=== PATIENT | male | born 1955 | race Caucasian/White ===

== ENCOUNTER → 2017-04-07 | Outpatient (CLI) | payer BC ==
--- NOTE | 2017-04-07 12:03 | REP ---
Chest two views HISTORY: Cough Comparison: None The lungs are clear. The heart is normal in size. The pulmonary vasculature is normal in appearance. The bony structure is intact. IMPRESSION: No acute disease. Signed by Timothy Stone MD 04/07/2017 11:55 A
== END ==
LOC: M WUC 11:07
PROVIDERS: ATTEND Family Medicine
DX: R05 Cough (principal)

== ENCOUNTER → 2018-01-31 | Outpatient (REF) | payer BC ==
[2018-01-31 19:51] LABS: AMORPHOUS SEDIMENT LARGE (NEGATIVE); APPEARANCE, URINE TURBID (CLEAR); BACTERIA, URINE AUTO NEGATIVE (NEGATIVE); BILIRUBIN, URINE AUTO NEGATIVE (NEGATIVE); BLOOD, URINE BLOOD NEGATIVE (NEGATIVE); COLOR, URINE YELLOW (YELLOW); GLUCOSE, URINE (UA) AUTO NEGATIVE (NEGATIVE); KETONE, URINE AUTO NEGATIVE (NEGATIVE); LEUKOCYTE ESTERASE, URINE AUTO NEGATIVE (NEGATIVE); NITRITE, URINE AUTO NEGATIVE (NEGATIVE); PROTEIN, URINE AUTO NEGATIVE (NEGATIVE); RBC, URINE AUTO 2 /HPF (0-3); SPECIFIC GRAVITY URINE AUTO 1.025 (1.002-1.035); SQUAMOUS EPITHELIAL CELL UR AU 0 /HPF (0-6); UROBILINOGEN, URINE AUTO 0.2 mg/dL (0.0-2.0); WBC, URINE AUTO 2 /HPF (0-3)
== END ==
LOC: M SMT 17:10
DX: R97.20 Elevated prostate specific antigen [PSA] (principal)
CPT/HCPCS: 81001

== ENCOUNTER → 2018-02-13 | Outpatient (CLI) | payer BC | LOC: M SMT PRO 08:56 | DX: C61 Malignant neoplasm of prostate (principal); R97.20 Elevated prostate specific antigen [PSA] | CPT/HCPCS: G0416 ==

== ENCOUNTER → 2018-10-01 | Outpatient (CLI) | payer BC | LOC: M WUC 15:56 | PROVIDERS: ATTEND Urology | DX: C61 Malignant neoplasm of prostate (principal) ==

== ENCOUNTER → 2018-10-23 | Outpatient (CLI) | payer BC ==
--- NOTE | 2018-10-23 12:10 | REP ---
TRANSRECTAL PROSTATE ULTRASOUND WITH ULTRASOUND GUIDANCE FOR PROSTATE BIOPSY: Real-time sonographic evaluation of the prostate performed utilizing transrectal probe. The size of the gland is 4.2 x 3.4 x 4.7 cm for a total volume of 35.4 mL. Echotexture is heterogeneous and there are tiny calcifications in the prostate. Seminal vesicles appear symmetrical. Ultrasound guidance was provided for Dr. Buckner who performed ultrasound-guided biopsy of the prostate. Electronically Signed by Jac Murdock MD 10/23/2018 12:49 P
== END ==
LOC: M SMT PRO 09:20
PROVIDERS: ATTEND Urology
DX: C61 Malignant neoplasm of prostate (principal)
CPT/HCPCS: 76872; 76942; G0416

== ENCOUNTER → 2018-10-31 | Outpatient (CLI) | payer BC ==
[~2018-10-31] MED LIST: HYDR-3713 PO; HYDR12.55 PO; LISI40TA PO
[2018-10-31 19:00] LABS: HEMATOCRIT 44.6 % (42.0-52.0); HEMOGLOBIN 14.8 g/dl (13.5-17.5); MEAN CORPUSCULAR HEMOGLOBIN 32.1 pg (27.0-33.0); MEAN CORPUSCULAR HGB CONC 33.2 g/dl (32.0-36.5); MEAN CORPUSCULAR VOLUME 96.7 fl (80.0-96.0); PLATELET COUNT, AUTOMATED 260 10^3/uL (150-450); RED BLOOD COUNT 4.61 10^6/uL (4.30-6.10)
[2018-10-31 19:09] LABS: BLOOD UREA NITROGEN 14 MG/DL (7-18); CALCIUM LEVEL 9.3 MG/DL (8.8-10.2); CARBON DIOXIDE LEVEL 32 MEQ/L (21-32); CHLORIDE LEVEL 99 MEQ/L (98-107); CREATININE FOR GFR 0.91 MG/DL (0.70-1.30); GLOMERULAR FILTRATION RATE > 60.0 (>49); GLUCOSE, FASTING 98 MG/DL (70-100); POTASSIUM SERUM 4.4 MEQ/L (3.5-5.1); SODIUM LEVEL 137 MEQ/L (136-145)
[2018-10-31 19:13] LABS: INR 0.89; PROTHROMBIN TIME 12.1 SECONDS (12.1-14.4)
[2018-10-31 19:14] LABS: PARTIAL THROMBOPLASTIN TIME 29.7 SECONDS (25.4-37.6)
--- NOTE | 2018-11-01 03:58 | REP ---
Clinical: Preoperative assessment. Prostate cancer . Comparison: 04/07/2017 . Technique: PA and lateral. Findings: The mediastinum and cardiac silhouette are normal. A small 6 mm nodule within the right upper lung zone overlying the medial aspect of the right sixth rib cannot be excluded. The lung travis are otherwise clear and without acute consolidation, effusion, or pneumothorax. The skeletal structures are intact and normal. Impression: 1. Small 6 mm nodule in the medial right upper lung zone cannot be excluded. 2. No further acute cardiopulmonary process. Electronically Signed by Michael Ortega MD 11/01/2018 03:50 A
== END ==
LOC: M SMT 14:54
PROVIDERS: ATTEND Urology
DX: Z01.818 Encounter for other preprocedural examination (principal); R91.1 Solitary pulmonary nodule; C61 Malignant neoplasm of prostate; N39.0 Urinary tract infection, site not specified

== ENCOUNTER 2018-11-06 05:39 | Inpatient (IN) | payer BC ==
[2018-11-06] VITALS (7 sets, daily range): BP systolic 84–116; BP diastolic 52–66
[~2018-11-06] VITALS: Ht 175.3 cm; Wt 73.8 kg
[2018-11-06] MEDS ORDERED: LR 1,000 ML IV SCH ×2 (06:00→14:30)
[2018-11-06] MEDS ORDERED: HEPARIN SOD (PORCINE) 5000 UNITS/ML VIAL SQ ONE (06:00)
[2018-11-06] MEDS ORDERED: BUPIVACAINE HCL 0.25% 30 ML VIAL As Ordered ONE (07:14)
[2018-11-06] MEDS ORDERED: LIDOCAINE 1% SDV INJ 30 ML VIAL As Ordered ONE (07:14)
[2018-11-06] MEDS ORDERED: ACETAMINOPHEN TAB 650MG DOSE (2X325MG) PO PRN (07:30)
[2018-11-06] MEDS ORDERED: PERCOCET 5MG/325MG TAB PO PRN ×2 (07:30→14:30)
[2018-11-06] MEDS ORDERED: ONDANSETRON 4MG/2ML VIAL (J2405) IV PRN ×2 (07:30→14:30)
[2018-11-06] MEDS: NS 1,000 ML IV SCH ×3 (07:30→23:30)
[2018-11-06] MEDS ORDERED: MORPHINE 4 MG/ML 1ML VIAL/SYRINGE (J2270) IV PRN (07:30)
[2018-11-06] MEDS ORDERED: HEPARIN SOD (PORCINE) 5000 UNITS/ML VIAL As Ordered ONE (07:38)
[2018-11-06] MEDS ORDERED: ePHEDrine SULFATE 25 MG/5 ML(5MG/ML) SYRINGE As Ordered ONE ×2 (08:19→12:27)
[2018-11-06] MEDS ORDERED: GLYCOPYRROLATE INJ 0.2 MG/ML 2 ML VIAL As Ordered ONE (08:19)
[2018-11-06] MEDS ORDERED: NEOSTIGMINE 10 MG/10 ML VIAL (J2710) As Ordered ONE (08:19)
[2018-11-06] MEDS ORDERED: ONDANSETRON 4MG/2ML VIAL (J2405) As Ordered ONE (08:19)
[2018-11-06] MEDS ORDERED: ROCURONIUM BROMIDE 50 MG/5 ML VIAL As Ordered ONE ×3 (08:19→11:11)
[2018-11-06] MEDS ORDERED: fentaNYL 250 MCG/5 ML INJECTION (J3010) As Ordered ONE (08:19)
[2018-11-06] MEDS ORDERED: dexameTHASONE 4 MG/ML 1ML VIAL (J1100) As Ordered ONE (08:19)
[2018-11-06] MEDS ORDERED: PROPOFOL 200 MG/20 ML VIAL As Ordered ONE ×2 (08:19→13:28)
[2018-11-06] MEDS ORDERED: MIDAZOLAM INJ 2 MG/2 ML VIAL (J2250) As Ordered ONE (08:19)
[2018-11-06] MEDS ORDERED: HYDROmorphone HCL 2 MG/ML 1ML VIAL (J1170) As Ordered ONE (08:19)
[2018-11-06] MEDS ORDERED: LIDOCAINE 2% INJ 100 MG/5 ML SDV (FOR ANES.) As Ordered ONE (08:19)
--- NOTE | 2018-11-06 14:26 | ROOPDOC ---
[facility] Report Of Operation Report of Operation DATE OF PROCEDURE: 11/06/18 PREPROCEDURE DIAGNOSIS: Prostate cancer. POSTPROCEDURE DIAGNOSIS: Prostate cancer. PROCEDURE: Robotic-assisted laparoscopic radical prostatectomy with bilateral pelvic lymph node dissection. SURGEON: Clint Van MD FUSE COILER: Zully Pack NP ANESTHESIA: General. OPERATIVE INDICATIONS: This is a 63 year old male with intermediate risk clinical T1c [place] 3+4 prostate cancer. After a discussion of the options for treatment, he elected to undergo the above procedure. DESCRIPTION OF PROCEDURE: The patient was brought to the operating room and general anesthesia was induced. Prophylactic antibiotics were infused. He was then placed in the dorsal lithotomy position and prepped and draped in the usual sterile fashion. At this point, a Casarez catheter was inserted into the bladder and the balloon was filled with 10 mL of sterile water. We then made a midline incision just above the umbilicus for a 12 mm port. A Veress needle was utilized to achieve pneumoperitoneum. Next, a 12 mm port was inserted into the incision and subsequently a camera was inserted. There were no injuries from the Veress needle or initial trocar placement. At this point, we placed the remaining ports, including a 12 mm entry level marketing assistant port and then three robotic ports in the usual W configuration. Once all the ports were placed, the robot was docked. Lysis of adhesions between the sigmoid colon and abdominal wall was then performed. The bladder was then released from the anterior abdominal wall using electrocautery. Once the bladder was dropped, the fat overlying the prostate was cleared using electrocautery. The superficial dorsal vein was controlled with electrocautery. The endopelvic fascia was opened on both sides and the dorsal venous complex was cleared. Next, a #0 Vicryl [id number] stitch was placed around the dorsal venous complex. Once that was done, the bladder was opened and dissected away from the prostate. Of note, the patient had a large median lobe. As a result the patient had a larger than usual bladder neck once the prostate was dissected away from the bladder. Because of the excess amount of posterior bladder neck, this was trimmed back and the tissue removed was sent as posterior bladder neck margins. At this point, the prostate was lifted up. The vasa deferentia were identified in the midline. They were ligated with Weck clips and then transected. The seminal vesicles were also dissected off bilaterally. The rectum was safely mobilized away from the prostate. Based on preoperative discussion a right sided only nerve-sparing procedure was done. Therefore prior to taking the pedicles, the right neurovascular bundles was dissected off the prostate using cold scissors. At this point bilateral prostatic pedicles were taken using a combination of Weck clips and cold scissors. The pedicles were carried towards the apex. After taking care of the pedicles and mobilizing the rectum off the prostate below, the prostate was only connected by the urethra. At this point, the dorsal venous complex was transected with electrocautery. The urethra was then opened and the catheter was withdrawn and the posterior urethra was transected, thus freeing the prostate. At this point, we checked for hemostasis and it did appear very good. Next, we performed bilateral pelvic lymph node dissection. This was done in a standard fashion. The limits of dissection were the iliac vein proximally, the obturator nerve distally, the pelvic sidewall laterally, and the bladder medially. All lymphatic tissue within these limits was removed. I performed the same procedure on both the right and left sides. Hemostasis was then obtained with a combination of bipolar electrocautery and Weck clips. The lymphatic packets were then placed in separate Endo Catch bags for future retrieval. Once hemostasis was confirmed, I then moved on to perform the vesicourethral anastomosis. This was performed in running fashion using a Quill stitch. Once this was done, the final #20-Yi Casarez catheter was placed. The balloon was filled with 15 mL of sterile water. Upon completion of the vesicourethral anastomosis, it was tested by filling the bladder with sterile water. The anastomosis appeared to be watertight. At this point, the prostate and seminal vesicles were placed in an Endo Catch bag for future retrieval. The robot was then undocked. A Wesley fascial closure device was utilized to place a #0 Vicryl suture between the fascia of the 12 mm entry level marketing assistant port. At this point, a Tucker- Tran drain was brought in through the left robotic port skin site and the drain was positioned anterior to the bladder. The drain was secured to the skin with #2-0 Ethilon suture. Next, all the remaining ports were removed and there did not appear to be any bleeding from any of the port sites. The prostate, as well as the lymphatic packets were then extracted from the 12 mm camera port site after the skin was extended. The fascia in this incision was then closed with a running #0 Vicryl stitch. The previously placed #0 Vicryl free ties through the entry level marketing assistant port were then tied down and all incisions were irrigated. Last, all of the incisions were closed with running subcuticular #4-0 Monocryl sutures. Local anesthesia was applied. Dermabond was then applied to the incisions. This marked the conclusion of the procedure. The patient was then taken out of the dorsal lithotomy position, awakened from anesthesia and transported to the recovery room in stable condition. ESTIMATED BLOOD LOSS: 425 mL. COMPLICATIONS: None. SPECIMENS: Prostate and seminal vesicles, right pelvic lymph nodes, left pelvic lymph nodes, posterior bladder neck margins. PLAN: The patient will be admitted to the hospital postoperatively, and he will likely be discharged home within the next 1-2 days. CLINT VAN MD Nov 06, 2018 14:26
[2018-11-06] MEDS ORDERED: METOCLOPRAMIDE INJ 10MG/2ML VIAL (J2765) IV PRN (14:30)
[2018-11-06] MEDS ORDERED: MEPERIDINE INJ 25 MG/ML VIAL (J2175) IV PRN (14:30)
[2018-11-06] MEDS ORDERED: fentaNYL 100 MCG/2 ML INJECTION (J3010) As Ordered ONE (14:33)
[2018-11-06] MEDS: fentaNYL 100 MCG/2 ML INJECTION (J3010) IV PRN ×4 (14:38→15:04)
[2018-11-06 14:56] LABS: BLOOD UREA NITROGEN 10 MG/DL (7-18); CALCIUM LEVEL 7.5 MG/DL (8.8-10.2); CARBON DIOXIDE LEVEL 25 MEQ/L (21-32); CHLORIDE LEVEL 102 MEQ/L (98-107); CREATININE FOR GFR 0.94 MG/DL (0.70-1.30); GLOMERULAR FILTRATION RATE > 60.0 (>49); GLUCOSE, FASTING 180 MG/DL (70-100); SODIUM LEVEL 136 MEQ/L (136-145)
[2018-11-06 15:39] LABS: HEMATOCRIT 37.1 % (42.0-52.0); HEMOGLOBIN 12.4 g/dl (13.5-17.5); MEAN CORPUSCULAR HEMOGLOBIN 32.2 pg (27.0-33.0); MEAN CORPUSCULAR HGB CONC 33.4 g/dl (32.0-36.5); MEAN CORPUSCULAR VOLUME 96.4 fl (80.0-96.0); PLATELET COUNT, AUTOMATED 181 10^3/uL (150-450); RED BLOOD COUNT 3.85 10^6/uL (4.30-6.10); WHITE BLOOD COUNT 11.4 10^3/uL (4.0-10.0)
[2018-11-06] MEDS: ceFAZolin SOD 1 GM in D5W MINI-BAG PLUS 50 ML IV SCH (16:25)
[2018-11-06] MEDS: HEPARIN SOD (PORCINE) 5000 UNITS/ML VIAL SC SCH ×2 (16:28→21:29)
[2018-11-06] MEDS: DOCUSATE SODIUM 100 MG CAP PO SCH ×2 (16:28→21:29)
[2018-11-06] MEDS ORDERED: NS 500 ML IV ONE (20:15)
[2018-11-06] MEDS ORDERED: hydroCHLOROthiazide 12.5 MG CAPSULE PO SCH (21:00)
[2018-11-06] MEDS ORDERED: LISINOPRIL 40 MG TAB PO SCH (21:00)
[2018-11-07] MEDS: ceFAZolin SOD 1 GM in D5W MINI-BAG PLUS 50 ML IV SCH (00:45)
[2018-11-07] MEDS: PERCOCET 5MG/325MG TAB PO PRN ×3 (01:50→11:58)
[2018-11-07 02:00] VITALS: BP 110/70
[2018-11-07] MEDS: HEPARIN SOD (PORCINE) 5000 UNITS/ML VIAL SC SCH ×2 (05:53→14:24)
[2018-11-07 06:00] VITALS: BP 102/68
[2018-11-07 06:50] LABS: HEMATOCRIT 29.2 % (42.0-52.0); HEMOGLOBIN 9.8 g/dl (13.5-17.5); MEAN CORPUSCULAR HEMOGLOBIN 32.9 pg (27.0-33.0); MEAN CORPUSCULAR HGB CONC 33.6 g/dl (32.0-36.5); PLATELET COUNT, AUTOMATED 148 10^3/uL (150-450); RED BLOOD COUNT 2.98 10^6/uL (4.30-6.10); WHITE BLOOD COUNT 10.5 10^3/uL (4.0-10.0)
[2018-11-07 07:16] LABS: BLOOD UREA NITROGEN 8 MG/DL (7-18); CALCIUM LEVEL 7.4 MG/DL (8.8-10.2); CARBON DIOXIDE LEVEL 27 MEQ/L (21-32); CHLORIDE LEVEL 104 MEQ/L (98-107); CREATININE FOR GFR 0.79 MG/DL (0.70-1.30); GLOMERULAR FILTRATION RATE > 60.0 (>49); GLUCOSE, FASTING 114 MG/DL (70-100); POTASSIUM SERUM 3.7 MEQ/L (3.5-5.1); SODIUM LEVEL 138 MEQ/L (136-145)
[2018-11-07] MEDS ORDERED: LIDOCAINE 2% 5ML JELLY UROJET TOP ONE (09:00)
[2018-11-07 10:00] VITALS: BP 102/64
[2018-11-07] MEDS: DOCUSATE SODIUM 100 MG CAP PO SCH (10:17)
--- NOTE | 2018-11-07 11:15 | IPNPDOC ---
Assessment/Plan Date Seen The patient was seen on 11/07/18. Patient Summary This is a 63 y/o M POD1 s/p RALP w/ BPLND. He is doing well. Hemoglobin down to 10, which is likely partially due to hemodilution. Vitals stable. Cr normal. Good UOP. Plan/VTE VTE Prophylaxis Ordered?: Yes VTE Exclusion Mechanical Proph: N/A:VTE Prophy Ordered VTE Exclusion Pharmacological: N/A:VTE Prophy Ordered Plan/Urinary Catheter Urinary Catheter: Other Catheter: (catheter will need to stay in for 7-10 days for healing of the vesicourethral anastomosis) Plan - d/c IVF - percocet prn pain - periop abx completed - strict I/Os - SCDs when in bed - SQH - incentive spirometry - ambulate - regular diet - likely discharge home later today w/ catheter in place (will remove CIARRA drain prior to discharge) Subjective Review oF Systems Chief Complaint The patient is a 63-year-old male admitted with a reason for visit of Prostate Cancer. Events since Last Encounter No acute events o/n. Good pain control. Only discomfort is from the catheter. No n/v. No flatus yet. No f/c/ns. Objective Physical Examination General Exam: Alert, Cooperative, No Acute Distress ABDOMEN EXAM: Other (soft, mild tenderness; incisions clean/dry/intact; CIARRA w/ serosanguinous output) Skin Exam: Nl turgor and temperature Neuro Exam: Normal Speech Psych Exam: Mental status NL, Mood NL Other physical findings catheter in place, draining light pink urine Vital Signs/I&O Vital Signs Date Time Temp Pulse Resp B/P (MAP) Pulse Ox O2 Delivery O2 Flow Rate FiO2 11/07/18 06:37 16 11/07/18 06:20 2.0 11/07/18 06:00 98.5 77 102/68 (79) 98 11/06/18 15:12 Nasal Cannula I&O- Last 24 Hours up to 6 AM 11/07/18 05:59 Intake Total 5480 ml Output Total 2380 ml Balance 3100 ml Laboratory Data Labs 24H Laboratory Tests 2 11/06/18 14:18: Nucleated Red Blood Cells % (auto) 0.0, Anion Gap 9, Glomerular Filtration Rate > 60.0, Blood Urea Nitrogen 10, Creatinine 0.94, Sodium Level 136, Potassium Level 4.0, Chloride Level 102, Carbon Dioxide Level 25, Calcium Level 7.5L 11/07/18 06:39: Nucleated Red Blood Cells % (auto) 0.0, Anion Gap 7L, Glomerular Filtration Rate > 60.0, Blood Urea Nitrogen 8, Creatinine 0.79, Sodium Level 138, Potassium Level 3.7, Chloride Level 104, Carbon Dioxide Level 27, Calcium Level 7.4L CBC/BMP Laboratory Tests 11/06/18 14:18 Red Blood Count 3.85 L, Mean Corpuscular Volume 96.4 H, Mean Corpuscular Hemoglobin 32.2, Mean Corpuscular Hemoglobin Concent 33.4, Red Cell Distribution Width 12.0, Calcium Level 7.5 L 11/07/18 06:39 Red Blood Count 2.98 L, Mean Corpuscular Volume 98.0 H, Mean Corpuscular Hemoglobin 32.9, Mean Corpuscular Hemoglobin Concent 33.6, Red Cell Distribution Width 12.2, Calcium Level 7.4 L CLINT VAN MD Nov 07, 2018 11:15
[2018-11-07] MEDS ORDERED: COLA100C5 PO (15:24)
[2018-11-07] MEDS ORDERED: TYLE325T5 PO (15:24)
[2018-11-07] MEDS ORDERED: CIPR-249 PO (15:24)
[2018-11-07] MEDS ORDERED: PERC5TAB12 PO (15:24)
--- NOTE | 2018-11-09 15:46 | DSES ---
DATE OF ADMISSION: 11/06/2018 DATE OF DISCHARGE: 11/07/2018 ADMISSION DIAGNOSIS: Prostate cancer. DISCHARGE DIAGNOSIS: Prostate cancer. ADMITTING PHYSICIAN: Dr. Joe Buckner DISCHARGE PHYSICIAN: Dr. Joe Buckner PROCEDURES PERFORMED: Robotic-assisted laparoscopic radical prostatectomy, bilateral pelvic lymph node dissection on 11/06/2018. HISTORY OF PRESENT ILLNESS: This is a 63-year-old male with prostate cancer who elected to undergo the above-listed surgery for treatment. He admitted to the hospital postoperatively. HOSPITALIZATION COURSE: The patient's postoperative course was unremarkable. On postoperative day #1, all of his labs were within acceptable limits. He had excellent urine output with a normal amount of Tucker-Tran drain output. On postoperative day 1, he demonstrated that he was able to ambulate well with good pain control. He was tolerating a regular diet. He is therefore deemed ready for discharge home. His Tucker-Tran drain was removed prior to discharge. He was discharged home with his catheter in place with the plan for him to followup in the clinic in approximately 1 week for catheter removal and to discuss his pathology results.
== END 2018-11-07 16:10 | disposition home or self-care (01) | DRG 484 ==
LOC: M OR 05:39 → M MS5PR 15:24
PROVIDERS: ADMIT Urology; ATTEND Urology
PROC: 07BC4ZX Excision of Pelvis Lymphatic, Percutaneous Endoscopic Approach, Diagnostic (ICD-10-PCS; 2018-11-06)
PROC: 8E0W4CZ Robotic Assisted Procedure of Trunk Region, Percutaneous Endoscopic Approach (ICD-10-PCS; 2018-11-06)
PROC: 0VT04ZZ Resection of Prostate, Percutaneous Endoscopic Approach (ICD-10-PCS; principal; 2018-11-06 07:30)
DX: C61 Malignant neoplasm of prostate (principal); I10 Essential (primary) hypertension; M54.2 Cervicalgia; F10.20 Alcohol dependence, uncomplicated

== ENCOUNTER → 2018-11-21 | Outpatient (CLI) | payer BC ==
[~2018-11-21] MED LIST changes: +CIPR-249 PO; +COLA100C5 PO; +ISOVUE-370 76% 100ML VIAL (Q9967) As Ordered ONE; +PERC5TAB12 PO; +TYLE325T5 PO
--- NOTE | 2018-11-21 13:16 | REP ---
Clinical: Pulmonary nodule. Comparison: Chest x-ray dated 10/31/2018. Findings: There is diffuse high first he had bilateral lung travis are well-aerated, relatively symmetric and clear. The suspicious density on chest x-ray does not represent nodule or mass and likely represented summation shadows related to overlying pulmonary vasculature. There is no evidence for consolidation, significant nodule, or mass lesion. No pleural effusion. No pneumothorax. Tracheobronchial tree is patent. No adenopathy. The mediastinum demonstrates atherosclerotic changes to the thoracic aorta without aneurysm or dissection. Heart and pericardium appear normal. Moderate to large hiatal hernia at the gastroesophageal junction noted. Surrounding musculoskeletal structures are intact. Impression: 1. Suspicious density on recent x-ray likely represented summation shadow related to overlying pulmonary vasculature. 2. No significant pleuroparenchymal process appreciated. Electronically Signed by Michael Ortega MD 11/21/2018 01:08 P
== END ==
LOC: M RAD 12:34
PROVIDERS: ATTEND Family Medicine
DX: R91.1 Solitary pulmonary nodule (principal)
CPT/HCPCS: 71260; Q9967

== ENCOUNTER → 2019-03-19 | Outpatient (CLI) | payer BC ==
[~2019-03-19] MED LIST changes: -ISOVUE-370 76% 100ML VIAL (Q9967) As Ordered ONE
== END ==
LOC: M SMT 08:35
PROVIDERS: ATTEND Urology
DX: C61 Malignant neoplasm of prostate (principal)

== ENCOUNTER → 2019-06-24 | Outpatient (CLI) | payer BC | LOC: M SMT 08:11 | PROVIDERS: ATTEND Urology | DX: C61 Malignant neoplasm of prostate (principal) ==

== ENCOUNTER → 2019-09-02 | Outpatient (CLI) | payer BC ==
--- NOTE | 2019-09-02 11:28 | REP ---
Chest x-ray: Two views. History: Cough. Comparison chest x-ray: October 31, 2018. Findings: The lungs are symmetrically aerated and clear. Pleural angles are sharp. Heart size is normal. Pulmonary vasculature is not increased. The patient is status post lower cervical discectomy and fusion plating. Impression: No acute disease. Status post cervical spine fusion. Electronically Signed by Prince Whitfield MD 09/02/2019 11:19 A
== END ==
LOC: M WUC 09:28
PROVIDERS: ATTEND Physician Assistant
DX: R05 Cough (principal)

== ENCOUNTER → 2019-09-30 | Outpatient (CLI) | payer BC | LOC: M PLALAB 14:58 | PROVIDERS: ATTEND Urology | DX: C61 Malignant neoplasm of prostate (principal) ==

== ENCOUNTER 2019-10-28 12:43 | Emergency (ER) | payer BC ==
[~2019-10-28] VITALS: Ht 175.3 cm; Wt 70.9 kg
[2019-10-28] MEDS ORDERED: SILD100T (12:56)
[2019-10-28 13:29] LABS: BASO # 0.1 10^3/uL (0.0-0.2); BASO % 0.8 % (0.0-1.0); EOS # 0.2 10^3/uL (0.0-0.5); EOS % 1.8 % (0.0-3.0); HEMOGLOBIN 13.2 g/dl (13.5-17.5); LYMPH # 3.3 10^3/uL (1.5-5.0); LYMPH % 38.9 % (24.0-44.0); MEAN CORPUSCULAR HEMOGLOBIN 33.1 pg (27.0-33.0); MEAN CORPUSCULAR HGB CONC 33.8 g/dl (32.0-36.5); MEAN CORPUSCULAR VOLUME 97.7 fl (80.0-96.0); MONO # 0.7 10^3/uL (0.0-0.8); NEUTROPHILS # 4.2 10^3/uL (1.5-8.5); NEUTROPHILS % 50.3 % (36.0-66.0); PLATELET COUNT, AUTOMATED 193 10^3/uL (150-450); RED BLOOD COUNT 3.99 10^6/uL (4.30-6.10); WHITE BLOOD COUNT 8.4 10^3/uL (4.0-10.0)
[2019-10-28 14:05] LABS: BLOOD UREA NITROGEN 37 MG/DL (7-18); CARBON DIOXIDE LEVEL 27 MEQ/L (21-32); CHLORIDE LEVEL 99 MEQ/L (98-107); CK-MB VALUE MASS < 1.0 NG/ML (<3.6); CPK CREATINE PHOSPHOKINASE 83 U/L (39-308); CREATININE FOR GFR 2.38 MG/DL (0.70-1.30); GLOMERULAR FILTRATION RATE 29.6 (>49); GLUCOSE, FASTING 119 MG/DL (70-100); POTASSIUM SERUM 4.3 MEQ/L (3.5-5.1); SODIUM LEVEL 136 MEQ/L (136-145); TROPONIN I < 0.02 NG/ML (< 0.10)
[2019-10-28] MEDS ORDERED: NS 1,000 ML IV ONE ×2 (14:15→15:45)
[2019-10-28 14:27] LABS: ALBUMIN 4.1 GM/DL (3.2-5.2); ALT/SGPT 31 U/L (12-78); BILIRUBIN,DIRECT 0.1 MG/DL (0.0-0.2); BILIRUBIN,TOTAL 0.4 MG/DL (0.2-1.0); MAGNESIUM LEVEL 2.6 MG/DL (1.8-2.4); TOTAL PROTEIN 7.5 GM/DL (6.4-8.2)
--- NOTE | 2019-10-28 14:41 | REP ---
Head CT without contrast: History: Syncope. Comparison study: No comparison study CT findings: Bone window settings demonstrate an intact bony calvarium. There is no evidence of skull fracture or incidental bony calvarial lesion. The visualized paranasal sinuses appear clear. No intraorbital abnormality is seen. On soft tissue window setting images; the lateral, third, and fourth ventricles are normal in size and position. Murdock-white differentiation pattern is normal above and below the tentorium. There are is no evidence of intracranial hemorrhage. No mass, edema, infarction, or midline shift is seen. No extra-axial fluid collection is appreciated. Incidental note is made of a small subgaleal lipoma in the left frontal scalp. Impression: Negative noncontrast head CT. Electronically Signed by Prince Whitfield MD 10/28/2019 02:34 P
--- NOTE | 2019-10-28 15:11 | REP ---
Portable chest, 02:43 p.m., single AP view with the patient upright: Comparison is 09/02/2019. The lung travis are clear. The cardiac size is normal. The matt, mediastinum, and skeletal structures are unremarkable. There is a cervical spine stabilization plate, unchanged. Impression: Negative portable chest. There is no interval change. Electronically Signed by Jac Jones MD 10/28/2019 03:03 P
[2019-10-28 15:13] LABS: INFLUENZA A AMPLIFICATION NEGATIVE (NEGATIVE); INFLUENZA B AMPLIFICATION NEGATIVE (NEGATIVE)
--- NOTE | 2019-10-28 16:28 | REP ---
Renal ultrasound for acute renal failure: The right kidney measures 31 2 x 5.2 x 5.5 cm. Left kidney measures 11.1 x 4.4 x 5.0 cm. The kidneys are normal size. Renal cortical echogenicity is normal bilaterally. There is no hydronephrosis on the right on the left. There are no renal calculi. There are no solid renal masses. There is a cyst at the lower pole of the right kidney measuring 4.4 x 4.1 x 3.6 cm containing a few thin septa compatible with a Bosniak type 2 cyst. Bladder: With color Doppler assessment the right ureteral jet into the bladder is identified. The left ureteral jet cannot be identified, however there is no left hydronephrosis. Impression: A Bosniak type 2 right renal lower pole cyst. No hydronephrosis. The left ureteral jet into the bladder cannot be identified, however there is no hydronephrosis. Otherwise, negative renal ultrasound. Electronically Signed by Jac Jones MD 10/28/2019 04:18 P
[2019-10-28 18:13] LABS: CALCIUM LEVEL 7.8 MG/DL (8.8-10.2); CREATININE FOR GFR 1.47 MG/DL (0.70-1.30); GLOMERULAR FILTRATION RATE 51.7 (>49); POTASSIUM SERUM 4.9 MEQ/L (3.5-5.1)
[2019-10-28 18:45] VITALS: BP 130/82
--- NOTE | 2019-10-28 19:16 | ECGEPIP ---
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
== END 2019-10-28 19:12 | disposition home or self-care (01) ==
LOC: EDSEX 12:43 → M ED 12:43 → EDBD 12:43 → M ED 19:12
DX: I95.1 Orthostatic hypotension (principal); E86.0 Dehydration; N28.1 Cyst of kidney, acquired; I10 Essential (primary) hypertension; Z85.46 Personal history of malignant neoplasm of prostate; G89.29 Other chronic pain; M54.5 Low back pain; M54.2 Cervicalgia; Z79.899 Other long term (current) drug therapy

== ENCOUNTER 2019-11-24 17:28 | Emergency (ER) | payer BC ==
[~2019-11-24] VITALS: Ht 177.8 cm; Wt 72.0 kg
[~2019-11-24 17:28] MED LIST changes: +SILD100T
[2019-11-24] MEDS ORDERED: NS 1,000 ML IV ONE ×2 (18:00→19:00)
[2019-11-24 18:09] LABS: BASO # 0.1 10^3/uL (0.0-0.2); BASO % 0.6 % (0.0-1.0); EOS # 0.1 10^3/uL (0.0-0.5); EOS % 1.6 % (0.0-3.0); HEMATOCRIT 35.7 % (42.0-52.0); HEMOGLOBIN 12.1 g/dl (13.5-17.5); LYMPH # 2.2 10^3/uL (1.5-5.0); LYMPH % 24.7 % (24.0-44.0); MEAN CORPUSCULAR HEMOGLOBIN 33.4 pg (27.0-33.0); MEAN CORPUSCULAR HGB CONC 33.9 g/dl (32.0-36.5); MEAN CORPUSCULAR VOLUME 98.6 fl (80.0-96.0); MONO # 0.6 10^3/uL (0.0-0.8); MONO % 7.1 % (0.0-5.0); NEUTROPHILS # 5.7 10^3/uL (1.5-8.5); NEUTROPHILS % 65.7 % (36.0-66.0); PLATELET COUNT, AUTOMATED 212 10^3/uL (150-450); RED BLOOD COUNT 3.62 10^6/uL (4.30-6.10); WHITE BLOOD COUNT 8.7 10^3/uL (4.0-10.0)
[2019-11-24 18:43] LABS: ALBUMIN 3.7 GM/DL (3.2-5.2); ALT/SGPT 34 U/L (12-78); BILIRUBIN,DIRECT < 0.1 MG/DL (0.0-0.2); BILIRUBIN,TOTAL 0.3 MG/DL (0.2-1.0); BLOOD UREA NITROGEN 28 MG/DL (7-18); CALCIUM LEVEL 8.3 MG/DL (8.8-10.2); CARBON DIOXIDE LEVEL 29 MEQ/L (21-32); CHLORIDE LEVEL 102 MEQ/L (98-107); CK-MB VALUE MASS < 1.0 NG/ML (<3.6); CPK CREATINE PHOSPHOKINASE 97 U/L (39-308); CREATININE FOR GFR 1.63 MG/DL (0.70-1.30); ETHYL ALCOHOL (ETHANOL) < 0.003 % (0.000-0.010); FREE T4 1.24 NG/DL (0.76-1.46); GLOMERULAR FILTRATION RATE 45.9 (>49); GLUCOSE, FASTING 136 MG/DL (70-100); MAGNESIUM LEVEL 2.3 MG/DL (1.8-2.4); MB/CK RELATIVE INDEX 1.03 (< OR =4); POTASSIUM SERUM 4.1 MEQ/L (3.5-5.1); SODIUM LEVEL 138 MEQ/L (136-145); TROPONIN I < 0.02 NG/ML (< 0.10)
[2019-11-24 20:27] VITALS: BP 97/53
--- NOTE | 2019-11-24 20:59 | ECGEPIP ---
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
--- NOTE | 2019-11-25 07:59 | REP ---
CHEST, SINGLE VIEW: There is no evidence of acute infiltrate. No pleural effusion is seen. The heart is normal in size. The mediastinal silhouette is unremarkable. The visualized osseous structures are intact. IMPRESSION: No acute pulmonary disease. Electronically Signed by Jac Murdock MD 11/25/2019 01:21 P
--- NOTE | 2019-11-25 20:37 | ECGEPIP ---
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
== END 2019-11-24 20:28 | disposition home or self-care (01) ==
LOC: M ED 17:28
DX: E86.0 Dehydration (principal); R00.1 Bradycardia, unspecified; I10 Essential (primary) hypertension; Z85.46 Personal history of malignant neoplasm of prostate; G89.29 Other chronic pain; M54.5 Low back pain; M54.2 Cervicalgia; Z79.899 Other long term (current) drug therapy
CPT/HCPCS: 71045; 80048; 80076; 82550; 82553; 83735; 84439; 84443; 84484; 85025; 93005; 93041; 94760; 96360; 96361; 99285; G0480

== ENCOUNTER → 2019-12-03 | Outpatient (REF) | payer BC ==
[2019-12-03 16:25] LABS: FERRITIN 984 NG/ML (26-388); IRON (FE) 143 UG/DL (65-175); PERCENT SATURATION 44.7 % (19.7-50.0); TOTAL IRON BINDING CAPACITY 320 UG/DL (250-450)
[2019-12-03 16:34] LABS: FOLATE > 24.0 NG/ML; VITAMIN B12 LEVEL 600 PG/ML
== END ==
LOC: M LAB REF 15:50
PROVIDERS: ATTEND Family Medicine
DX: D64.9 Anemia, unspecified (principal)

== ENCOUNTER → 2020-04-13 | Outpatient (CLI) | payer BC | LOC: M PLALAB 08:22 | PROVIDERS: ATTEND Urology | DX: C61 Malignant neoplasm of prostate (principal) ==

== ENCOUNTER → 2020-05-14 | Outpatient (CLI) | payer BC ==
--- NOTE | 2020-06-30 08:17 | REP ---
CHEST X-RAY: 2-VIEWS HISTORY: Cough. COMPARISON: Chest x-ray from 11/24/19. FINDINGS: The patient is status post lower cervical discectomy and fusion plating. The lungs are well inflated and clear. The pleural angles are sharp. The heart is not enlarged. No significant bony abnormality is seen. The pulmonary vasculature is not increased. There is minimal vascular calcification. There is evidence of a small sliding type hiatal hernia. This is unchanged from a comparison CT study dated 11/21/18. IMPRESSION: Small sliding hiatal hernia. Prior cervical discectomy and fusion plating. No active disease. [facility]
== END ==
LOC: M WUC 09:25
PROVIDERS: ATTEND Family Medicine
DX: R05 Cough (principal); K44.9 Diaphragmatic hernia without obstruction or gangrene

== ENCOUNTER → 2020-10-12 | Outpatient (REF) | payer BC ==
[~2020-10-12] MED LIST changes: -LISI40TA PO; +LISI40TA4 PO
== END ==
LOC: M PLALAB 09:17
PROVIDERS: ATTEND Urology
DX: C61 Malignant neoplasm of prostate (principal)

== ENCOUNTER → 2021-01-09 | Outpatient (CLI) | payer BC ==
[~2021-01-09] MED LIST changes: +HYDR-4571 PO; +HYDR12CA PO; -SILD100T; +SILD100T PO
== END ==
LOC: M LABSMTC 09:16
PROVIDERS: ATTEND Anesthesiology
DX: Z01.812 Encounter for preprocedural laboratory examination (principal)

== ENCOUNTER 2021-01-14 10:21 | Day surgery (SDC) | payer BC ==
[~2021-01-14] VITALS: Ht 175.3 cm; Wt 71.8 kg
[~2021-01-14 10:21] MED LIST changes: +NS 1,000 ML IV ONE
[2021-01-14] MEDS ORDERED: propofoL 200 MG/20 ML VIAL As Ordered ONE ×3 (14:12→14:53)
[2021-01-14] MEDS ORDERED: GLYCOPYRROLATE INJ 0.2 MG/ML 2 ML VIAL As Ordered ONE (14:46)
--- NOTE | 2021-01-14 14:59 | ROOR ---
Patient Name: Darrell Vo Procedure Date: 01/14/2021 2:39 PM Date of : 1955 Age: 65 Room: [facility] Gender: Male Note Status: Finalized Procedure: Colonoscopy Indications: Screening for colorectal malignant neoplasm Providers: Thiago Arciniega Jr, MD Referring MD: Saqib Kimball MD Requesting Provider: Medicines: Propofol per Anesthesia Complications: No immediate complications. Procedure: Pre-Anesthesia Assessment: - Prior to the procedure, a History and Physical was performed, and patient medications and allergies were reviewed. The patient is competent. The risks and benefits of the procedure and the sedation options and risks were discussed with the patient. All questions were answered and informed consent was obtained. Patient identification and proposed procedure were verified by the physician and the nurse in the pre-procedure area and in the procedure room. Mental Status Examination: alert and oriented. Airway Examination: normal oropharyngeal airway and neck mobility. Respiratory Examination: clear to auscultation. CV Examination: normal. ASA Grade Assessment: II - A patient with mild systemic disease. After reviewing the risks and benefits, the patient was deemed in satisfactory condition to undergo the procedure. The anesthesia plan was to use moderate sedation / analgesia (conscious sedation). Immediately prior to administration of medications, the patient was re-assessed for adequacy to receive sedatives. The heart rate, respiratory rate, oxygen saturations, blood pressure, adequacy of pulmonary ventilation, and response to care were monitored throughout the procedure. The physical status of the patient was re-assessed after the procedure. The Colonoscope was introduced through the anus and advanced to the cecum, identified by appendiceal orifice and ileocecal valve. The colonoscopy was performed without difficulty. The patient tolerated the procedure well. The quality of the bowel preparation was adequate. Findings: The rectum, recto-sigmoid colon, descending colon, transverse colon, appendiceal orifice and ileocecal valve appeared normal. Three sessile polyps were found in the sigmoid colon, ascending colon and cecum. The polyps were small in size. These polyps were removed with a cold snare. Resection and retrieval were complete. Impression: - The rectum, recto-sigmoid colon, descending colon, transverse colon, appendiceal orifice and ileocecal valve are normal. - Three small polyps in the sigmoid colon, in the ascending colon and in the cecum, removed with a cold snare. Resected and retrieved. Recommendation: - Discharge patient to home (ambulatory). - Repeat colonoscopy in 5-10 years for surveillance based on pathology results. Procedure Code(s): --- Professional --- 58118, Colonoscopy, flexible; with removal of tumor(s), polyp(s), or other lesion(s) by snare technique Diagnosis Code(s): --- Professional --- Z12.11, Encounter for screening for malignant neoplasm of colon K63.5, Polyp of colon CPT copyright 2019 [employer]. All rights reserved. The codes documented in this report are preliminary and upon nuclear design engineer review may be revised to meet current compliance requirements. Thiago Arciniega MD Thiago Arciniega Jr, MD 01/14/2021 2:58:37 PM Electronically signed by Thiago Arciniega Jr, MD Number of Addenda: 0 Note Initiated On: 01/14/2021 2:39 PM Estimated Blood Loss: Estimated blood loss: none.
[2021-01-14 15:08] VITALS: BP 128/69
== END 2021-01-14 15:10 | disposition home or self-care (01) ==
LOC: M OPP 10:21
PROVIDERS: ATTEND Surgery
DX: Z12.11 Encounter for screening for malignant neoplasm of colon (principal); K63.5 Polyp of colon; Z79.891 Long term (current) use of opiate analgesic; Z79.899 Other long term (current) drug therapy

== ENCOUNTER → 2021-06-24 | Outpatient (CLI) | payer BC ==
[~2021-06-24] MED LIST changes: -NS 1,000 ML IV ONE
== END ==
LOC: M PLALAB 08:38
PROVIDERS: ATTEND Urology
DX: C61 Malignant neoplasm of prostate (principal)

== ENCOUNTER → 2021-08-03 | Outpatient (CLI) | payer BC ==
--- NOTE | 2021-08-03 11:36 | REP ---
INDICATION: ELEV LFT'S. TECHNIQUE: Real-time sonographic evaluation of the right upper quadrant with Doppler FINDINGS: Multiple ultrasonographic images of the liver show the hepatic parenchymal echo texture to appear unremarkable. In the right lobe of the liver there is a complex appearing 1.7 x 1.9 x 1.9 cm sized cystic and solid nodule.. There is no intrahepatic ductal dilatation. The common bile duct measures approximately 4 mm in its greatest transverse dimension. Multiple ultrasonographic images of the gallbladder show no focal or diffuse gallbladder wall thickening. There are no echogenic foci within the gallbladder lumen, which casts acoustic shadows. There is no pericholecystic edema. Images of the pancreatic region show no gross abnormality. The imaged portion the right kidney shows a complex mass arising from the inferior pole which measures 5.4 x 4.6 x 4.1 cm. IMPRESSION: 1. Hepatic lesion as described above. 2. Right renal mass as described above. 3. Both areas could be evaluated with pre and post gadolinium enhanced abdominal MRI which is recommended. Neoplasm cannot be ruled out. Accredited by the [employer] in General Ultrasound. <Electronically signed by Talon Payton > 08/03/21 [id number]
== END ==
LOC: M RAD 07:29
PROVIDERS: ATTEND Family Medicine
DX: K76.89 Other specified diseases of liver (principal); N28.89 Other specified disorders of kidney and ureter; R74.01 Elevation of levels of liver transaminase levels

== ENCOUNTER → 2021-09-27 | Outpatient (CLI) | payer BC ==
[~2021-09-27] MED LIST changes: +PROHANCE 279.3MG/ML 15ML VIAL As Ordered ONE; +PROHANCE 279.3MG/ML 5ML VIAL As Ordered ONE
--- NOTE | 2021-09-27 11:13 | REP ---
INDICATION: LIVER LESION W/ RT RENAL MASS. COMPARISON: Ultrasound 08/03/2021. TECHNIQUE: Multiple sequences obtained in the axial and coronal planes prior to and following the intravenous administration of 14 mL ProHance. FINDINGS: There is moderate-sized hiatal hernia. In the liver there is a nodule in the right lobe which measures 1.9 cm in greatest diameter. It is hyperintense on T2 weighted images. There is enhancement characteristic for a hemangioma. No other liver mass is seen. The gallbladder is unremarkable in appearance. There is no evidence of biliary dilatation. The spleen is normal in size with no intrinsic abnormality. The adrenal glands and pancreas demonstrate no mass. There is no pancreatic duct dilatation. In the lower pole the right kidney there is a cystic structure which measures approximately 5.5 x 5.1 x 4.6 cm. There are multiple thick, irregular internal septations which enhance. In the mid right kidney there is a benign appearing nonenhancing cyst 1.5 cm in diameter, and another medially 8 mm in diameter. In the upper pole the left kidney there is a benign appearing nonenhancing cyst 1 cm in diameter and a subcentimeter cyst in the mid aspect. There is no hydronephrosis bilaterally. There is no adenopathy or free fluid identified. IMPRESSION: Benign hemangioma right lobe of the liver. Complex cystic structure lower pole right kidney measures 5.5 x 5.1 x 4.6 cm. There are multiple thick, irregular internal septations which enhance. 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 Approximately 55% of these are malignant. Recommend urology consult. <Electronically signed by Jac Murdock > 09/27/21 [id number]
== END ==
LOC: M RAD 09:11
PROVIDERS: ATTEND Family Medicine
DX: D18.09 Hemangioma of other sites (principal); N28.1 Cyst of kidney, acquired
CPT/HCPCS: 74183; A9576

== ENCOUNTER → 2021-10-15 | Outpatient (CLI) | payer BC ==
[~2021-10-15] MED LIST changes: -PROHANCE 279.3MG/ML 15ML VIAL As Ordered ONE; -PROHANCE 279.3MG/ML 5ML VIAL As Ordered ONE
== END ==
LOC: M PLALAB 08:17
PROVIDERS: ATTEND Urology
DX: C61 Malignant neoplasm of prostate (principal)

== ENCOUNTER → 2021-10-22 | Outpatient (CLI) | payer BC ==
[~2021-10-22] MED LIST changes: +PERCOCET PO; +VITMTA PO
== END ==
LOC: M PLAIMG 13:59
PROVIDERS: ATTEND Urology
DX: Z01.818 Encounter for other preprocedural examination (principal); N28.89 Other specified disorders of kidney and ureter

== ENCOUNTER → 2021-10-25 | Outpatient (REF) | payer BC ==
[~2021-10-25] MED LIST changes: -PERCOCET PO; -VITMTA PO
== END ==
LOC: M LAB REF 16:09
PROVIDERS: ATTEND Family Medicine
DX: Z01.818 Encounter for other preprocedural examination (principal)

== ENCOUNTER → 2021-10-27 | Outpatient (CLI) | payer BC | LOC: M LABSMTC 11:54 | PROVIDERS: ATTEND Anesthesiology | DX: Z01.818 Encounter for other preprocedural examination (principal); Z11.52 Encounter for screening for COVID-19 ==

== ENCOUNTER 2021-11-01 11:03 | Inpatient (IN) | payer BC ==
[~2021-11-01] VITALS: Ht 175.3 cm; Wt 68.9 kg
[~2021-11-01 11:03] MED LIST changes: +VITMTA PO; +ceFAZolin SOD 2 GM in IV 1 EA IV ONE
[2021-11-01] MEDS ORDERED: LIDOCAINE 1% SDV 30ML VIAL As Ordered ONE (12:55)
[2021-11-01] MEDS ORDERED: PERCOCET 5MG/325MG TAB PO PRN (12:55)
[2021-11-01] MEDS ORDERED: ONDANSETRON 4MG/2ML VIAL IV PRN ×2 (12:55→20:05)
[2021-11-01] MEDS ORDERED: NS 1,000 ML IV SCH (12:55)
[2021-11-01] MEDS ORDERED: ACETAMINOPHEN TAB 650MG DOSE (2X325MG) PO PRN (12:55)
[2021-11-01] MEDS ORDERED: BUPIVACAINE HCL 0.25% 30ML VIAL As Ordered ONE (12:56)
[2021-11-01] MEDS ORDERED: dexameTHASONE 4 MG/ML 1ML VIAL (J1100 PER 1MG) As Ordered ONE (13:00)
[2021-11-01] MEDS ORDERED: propofoL 200 MG/20 ML VIAL As Ordered ONE (13:00)
[2021-11-01] MEDS ORDERED: LIDOCAINE 2% 100MG/5ML SDV (FOR ANES.) As Ordered ONE (13:00)
[2021-11-01] MEDS ORDERED: fentaNYL 100 MCG/2 ML INJECTION As Ordered ONE (13:00)
[2021-11-01] MEDS ORDERED: ROCURONIUM BROMIDE 50 MG/5 ML VIAL As Ordered ONE ×4 (13:00→17:30)
[2021-11-01] MEDS ORDERED: SUGAMMADEX SODIUM 500 MG/5 ML VIAL (BRIDION) As Ordered ONE (13:00)
[2021-11-01] MEDS ORDERED: MIDAZOLAM INJ 2MG/2ML VIAL (J2250 PER 1MG) As Ordered ONE (13:00)
[2021-11-01] MEDS ORDERED: HYDROmorphone HCL 2MG/ML 1ML VIAL As Ordered ONE (13:26)
[2021-11-01] MEDS ORDERED: ACETAMINOPHEN 1000MG 100ML IV BTL (OFIRMEV) (J0131 PER 10MG) As Ordered ONE (13:44)
[2021-11-01] MEDS ORDERED: ONDANSETRON 4MG/2ML VIAL As Ordered ONE (13:46)
[2021-11-01] MEDS ORDERED: GLYCOPYRROLATE INJ 0.2 MG/ML 2 ML VIAL As Ordered ONE (14:20)
[2021-11-01] MEDS ORDERED: ceFAZolin 2 GM/D5W 50 ML IV BAG (J0690 PER 500MG) As Ordered ONE (17:49)
[2021-11-01 19:35] LABS: HEMATOCRIT 34.7 % (42.0-52.0); HEMOGLOBIN 11.7 g/dl (13.5-17.5); MEAN CORPUSCULAR HEMOGLOBIN 33.7 pg (27.0-33.0); MEAN CORPUSCULAR HGB CONC 33.7 g/dl (32.0-36.5); PLATELET COUNT, AUTOMATED 174 10^3/uL (150-450); RED BLOOD COUNT 3.47 10^6/uL (4.30-6.10); WHITE BLOOD COUNT 10.8 10^3/uL (4.0-10.0)
[2021-11-01 19:59] LABS: CALCIUM LEVEL 8.6 MG/DL (8.8-10.2); CREATININE FOR GFR 1.6 MG/DL (0.70-1.30); GLOMERULAR FILTRATION RATE 46.6 (>49); POTASSIUM SERUM 4.5 MEQ/L (3.5-5.1)
[2021-11-01 20:00] VITALS: BP 137/80
[2021-11-01] MEDS ORDERED: LR 1,000 ML IV SCH (20:05)
[2021-11-01] MEDS ORDERED: fentaNYL 100 MCG/2 ML INJECTION IV PRN (20:05)
[2021-11-01] MEDS ORDERED: oxyCODONE 5MG TAB PO PRN (20:05)
[2021-11-01] MEDS ORDERED: METOCLOPRAMIDE INJ 10MG/2ML VIAL (J2765 PER 1) IV PRN (20:05)
[2021-11-01] MEDS ORDERED: HYDROMORPHONE HCL 0.5 MG/ 0.5 ML SYRINGE (J1170 PER 1) IV PRN (20:05)
[2021-11-01 20:39] VITALS: BP 114/63
[2021-11-01] MEDS: DOCUSATE SODIUM 100MG CAPSULE PO SCH (21:49)
[2021-11-01] MEDS: ceFAZolin SOD 1 GM in D5W MINI-BAG PLUS 50 ML IV SCH (21:49)
[2021-11-01 21:54] VITALS: BP 109/62
[2021-11-01 22:56] VITALS: BP 103/57
[2021-11-01] MEDS: PERCOCET 5MG/325MG TAB PO PRN (23:42)
[2021-11-01 23:43] VITALS: BP 116/65
[2021-11-02 01:40] VITALS: BP 101/58
[2021-11-02] MEDS: ceFAZolin SOD 1 GM in D5W MINI-BAG PLUS 50 ML IV SCH (04:59)
[2021-11-02] MEDS: PERCOCET 5MG/325MG TAB PO PRN ×5 (05:00→23:46)
[2021-11-02 05:27] VITALS: BP 115/52
[2021-11-02 05:48] LABS: HEMATOCRIT 32.3 % (42.0-52.0); HEMOGLOBIN 10.7 g/dl (13.5-17.5); MEAN CORPUSCULAR HEMOGLOBIN 33.6 pg (27.0-33.0); MEAN CORPUSCULAR HGB CONC 33.1 g/dl (32.0-36.5); MEAN CORPUSCULAR VOLUME 101.6 fl (80.0-96.0); PLATELET COUNT, AUTOMATED 181 10^3/uL (150-450); RED BLOOD COUNT 3.18 10^6/uL (4.30-6.10); WHITE BLOOD COUNT 10.5 10^3/uL (4.0-10.0)
[2021-11-02 06:10] LABS: CALCIUM LEVEL 8.4 MG/DL (8.8-10.2); CREATININE FOR GFR 1.86 MG/DL (0.70-1.30); GLOMERULAR FILTRATION RATE 39.1 (>49); POTASSIUM SERUM 4.2 MEQ/L (3.5-5.1)
[2021-11-02] MEDS ORDERED: FUROSEMIDE 20MG/2ML VIAL (J1940) IV ONE (07:00)
[2021-11-02] MEDS: DOCUSATE SODIUM 100MG CAPSULE PO SCH ×2 (08:08→23:34)
[2021-11-02] MEDS ORDERED: hydroCHLOROthiazide 12.5 MG CAPSULE PO SCH (09:00)
[2021-11-02 10:00] VITALS: BP 124/70
[2021-11-02 14:00] VITALS: BP 127/72
[2021-11-02 18:00] VITALS: BP 128/73
[2021-11-02] MEDS ORDERED: COLA100C5 PO (18:45)
[2021-11-02] MEDS ORDERED: PERCOCET PO (18:45)
[2021-11-02 20:00] VITALS: BP 129/72
[2021-11-03] MEDS: PERCOCET 5MG/325MG TAB PO PRN ×2 (04:46→09:03)
[2021-11-03 05:55] LABS: HEMATOCRIT 33.3 % (42.0-52.0); MEAN CORPUSCULAR HEMOGLOBIN 33.8 pg (27.0-33.0); MEAN CORPUSCULAR VOLUME 102.5 fl (80.0-96.0); PLATELET COUNT, AUTOMATED 151 10^3/uL (150-450); RED BLOOD COUNT 3.25 10^6/uL (4.30-6.10); WHITE BLOOD COUNT 8.7 10^3/uL (4.0-10.0)
[2021-11-03 06:00] VITALS: BP 103/60
[2021-11-03 06:19] LABS: CALCIUM LEVEL 8.5 MG/DL (8.8-10.2); CREATININE FOR GFR 2.12 MG/DL (0.70-1.30); GLOMERULAR FILTRATION RATE 33.6 (>49); POTASSIUM SERUM 3.9 MEQ/L (3.5-5.1)
[2021-11-03] MEDS: DOCUSATE SODIUM 100MG CAPSULE PO SCH (07:57)
== END 2021-11-03 10:35 | disposition home or self-care (01) | DRG 442 ==
LOC: M OR 11:03 → M MS5PR 20:00
PROVIDERS: ADMIT Urology; ATTEND Urology
PROC: 8E0W4CZ Robotic Assisted Procedure of Trunk Region, Percutaneous Endoscopic Approach (ICD-10-PCS; 2021-11-01)
PROC: 0TT04ZZ Resection of Right Kidney, Percutaneous Endoscopic Approach (ICD-10-PCS; principal; 2021-11-01 12:45)
DX: C64.1 Malignant neoplasm of right kidney, except renal pelvis (principal); E87.1 Hypo-osmolality and hyponatremia; I10 Essential (primary) hypertension; E78.00 Pure hypercholesterolemia, unspecified; G89.29 Other chronic pain

== ENCOUNTER → 2021-11-09 | Outpatient (CLI) | payer BC ==
[~2021-11-09] MED LIST changes: +PERCOCET PO; -ceFAZolin SOD 2 GM in IV 1 EA IV ONE
[2021-11-09 13:35] LABS: HEMATOCRIT 36.2 % (42.0-52.0); MEAN CORPUSCULAR HEMOGLOBIN 33.7 pg (27.0-33.0); MEAN CORPUSCULAR HGB CONC 33.1 g/dl (32.0-36.5); MEAN CORPUSCULAR VOLUME 101.7 fl (80.0-96.0); PLATELET COUNT, AUTOMATED 362 10^3/uL (150-450); RED BLOOD COUNT 3.56 10^6/uL (4.30-6.10); WHITE BLOOD COUNT 8.4 10^3/uL (4.0-10.0)
[2021-11-09 14:06] LABS: CALCIUM LEVEL 9.3 MG/DL (8.8-10.2); CREATININE FOR GFR 1.97 MG/DL (0.70-1.30); GLOMERULAR FILTRATION RATE 36.6 (>49); POTASSIUM SERUM 5.1 MEQ/L (3.5-5.1)
== END ==
LOC: M PLALAB 11:19
PROVIDERS: ATTEND Urology
DX: C64.1 Malignant neoplasm of right kidney, except renal pelvis (principal)

== ENCOUNTER → 2022-09-02 | Outpatient (CLI) | payer MEDICARE, BC | LOC: M PLALAB 08:17 | PROVIDERS: ATTEND Urology | DX: C61 Malignant neoplasm of prostate (principal) ==

== ENCOUNTER → 2022-12-09 | Outpatient (REF) | payer MEDICARE, BC | LOC: M LAB REF 16:23 | PROVIDERS: ATTEND Internal Medicine | DX: G89.29 Other chronic pain (principal); R06.02 Shortness of breath ==

== ENCOUNTER → 2023-01-19 | Outpatient (REF) | payer BC | LOC: M LAB REF 16:55 | PROVIDERS: ATTEND Nurse Practitioner Family | DX: R06.02 Shortness of breath (principal) ==

== ENCOUNTER → 2023-02-07 | Outpatient (CLI) | payer MEDICARE, BC | LOC: M CARPUL 09:42 | PROVIDERS: ATTEND Nurse Practitioner Family | DX: R06.02 Shortness of breath (principal) ==

== ENCOUNTER → 2023-02-13 | Outpatient (CLI) | payer MEDICARE, BC | LOC: M RAD 12:48 | PROVIDERS: ATTEND Nurse Practitioner Family | DX: R06.02 Shortness of breath (principal) ==

== ENCOUNTER → 2023-03-08 | Outpatient (CLI) | payer MEDICARE, BC | LOC: M PLALAB 08:43 | PROVIDERS: ATTEND Urology | DX: C61 Malignant neoplasm of prostate (principal) ==

== ENCOUNTER → 2023-05-02 | Outpatient (CLI) | payer MEDICARE, BC | LOC: M RAD 09:30 | PROVIDERS: ATTEND Plastic Surgery Surgery of the Hand | DX: D17.0 Benign lipomatous neoplasm of skin and subcutaneous tissue of head, face and neck (principal) ==

== ENCOUNTER → 2023-05-30 | Day surgery (SDC) | payer MEDICARE, BC ==
[~2023-05-30] VITALS: Ht 175.3 cm; Wt 71.1 kg
[~2023-05-30] MED LIST changes: +ACETAMINOPHEN 1000MG 100ML IV BAG As Ordered ONE; +BACITRACIN OINTMENT 30GM TUBE As Ordered ONE; +FLUT1BLS8 IH; +GLYCOPYRROLATE INJ 0.2 MG/ML 2 ML VIAL As Ordered ONE; +LIDOCAINE 2% 100MG/5ML SDV (FOR ANES.) As Ordered ONE; +LIDOCAINE 2% W/EPINEPHRINE 20ML VIAL **PRES FREE As Ordered ONE; +LR 1,000 ML IV SCH; +MIDAZOLAM INJ 2MG/2ML VIAL As Ordered ONE; +MORPHINE 2 MG/ML 1ML VIAL IV PRN; +ONDANSETRON 4MG 2ML VIAL As Ordered ONE; +ONDANSETRON 4MG 2ML VIAL IV PRN; +POVIDONE-IODINE 5% OPHTH PREP SOL 30ML As Ordered ONE; +VENTAER INH; +ceFAZolin SOD 2 GM in IV 1 EA IV ONE; +dexmedeTOMIDine (4MCG/ML)200MCG/50ML BTL (PRECEDEX) As Ordered ONE; +fentaNYL 100 MCG/2 ML INJECTION As Ordered ONE; +fentaNYL 100 MCG/2 ML INJECTION IV PRN; +oxyCODONE 5MG TAB PO PRN; +propofoL 200 MG/20 ML VIAL As Ordered ONE
[2023-05-30 10:07] VITALS: BP 162/86; TEMP 97.1; O2SAT 96
== END | disposition home or self-care (01) ==
LOC: M SDC 06:09
PROVIDERS: ATTEND Plastic Surgery Surgery of the Hand
DX: D17.0 Benign lipomatous neoplasm of skin and subcutaneous tissue of head, face and neck (principal); I10 Essential (primary) hypertension; J45.909 Unspecified asthma, uncomplicated; K44.9 Diaphragmatic hernia without obstruction or gangrene; K21.9 Gastro-esophageal reflux disease without esophagitis; Z79.51 Long term (current) use of inhaled steroids; Z79.899 Other long term (current) drug therapy; Z85.46 Personal history of malignant neoplasm of prostate; Z85.528 Personal history of other malignant neoplasm of kidney
CPT/HCPCS: 11443; 88305; J0131; J0690; J1100; J2250; J2405; J3010

== ENCOUNTER → 2023-09-06 | Outpatient (CLI) | payer MEDICARE ==
[~2023-09-06] MED LIST changes: -ACETAMINOPHEN 1000MG 100ML IV BAG As Ordered ONE; -BACITRACIN OINTMENT 30GM TUBE As Ordered ONE; -GLYCOPYRROLATE INJ 0.2 MG/ML 2 ML VIAL As Ordered ONE; +ISOVUE-370 76% 100ML VIAL ONE; -LIDOCAINE 2% 100MG/5ML SDV (FOR ANES.) As Ordered ONE; -LIDOCAINE 2% W/EPINEPHRINE 20ML VIAL **PRES FREE As Ordered ONE; -LR 1,000 ML IV SCH; -MIDAZOLAM INJ 2MG/2ML VIAL As Ordered ONE; -MORPHINE 2 MG/ML 1ML VIAL IV PRN; -ONDANSETRON 4MG 2ML VIAL As Ordered ONE; -ONDANSETRON 4MG 2ML VIAL IV PRN; -POVIDONE-IODINE 5% OPHTH PREP SOL 30ML As Ordered ONE; -ceFAZolin SOD 2 GM in IV 1 EA IV ONE; -dexmedeTOMIDine (4MCG/ML)200MCG/50ML BTL (PRECEDEX) As Ordered ONE; -fentaNYL 100 MCG/2 ML INJECTION As Ordered ONE; -fentaNYL 100 MCG/2 ML INJECTION IV PRN; -oxyCODONE 5MG TAB PO PRN; -propofoL 200 MG/20 ML VIAL As Ordered ONE
== END ==
LOC: M PLAIMG 13:39
PROVIDERS: ATTEND Urology
DX: C64.1 Malignant neoplasm of right kidney, except renal pelvis (principal); Z90.5 Acquired absence of kidney; R97.20 Elevated prostate specific antigen [PSA]
CPT/HCPCS: 36415; 71046; 74170; 84153; Q9967

== ENCOUNTER → 2023-12-07 | Outpatient (REF) | payer MEDICARE, BC ==
[~2023-12-07] MED LIST changes: -ISOVUE-370 76% 100ML VIAL ONE
== END ==
LOC: M LAB REF 17:58
PROVIDERS: ATTEND Orthopaedic Surgery
DX: M72.0 Palmar fascial fibromatosis [Dupuytren] (principal)

== ENCOUNTER → 2024-03-04 | Outpatient (REF) | payer MEDICARE ==
[2024-03-05 17:19] LABS: FOLATE 23.7 NG/ML (>5.4)
== END ==
LOC: M LAB REF 14:55
PROVIDERS: ATTEND Family Medicine
DX: D64.9 Anemia, unspecified (principal)

== ENCOUNTER → 2024-09-11 | Outpatient (CLI) | payer MEDICARE | LOC: M RAD 11:14 | PROVIDERS: ATTEND Urology | DX: C64.1 Malignant neoplasm of right kidney, except renal pelvis (principal); Z90.5 Acquired absence of kidney ==

== ENCOUNTER → 2025-04-24 | Outpatient (CLI) | payer MEDICARE ==
[~2025-04-24] MED LIST changes: +HYDR12.510 PO; -HYDR12CA PO; +LISI40TA10 PO; -LISI40TA4 PO
== END ==
LOC: M RAD 17:21
PROVIDERS: ATTEND Physician Assistant
DX: J45.40 Moderate persistent asthma, uncomplicated (principal); R05.3 Chronic cough; R09.3 Abnormal sputum; J98.11 Atelectasis; J43.9 Emphysema, unspecified

== ENCOUNTER 2025-06-22 07:21 | Emergency (ER) | payer MEDICARE ==
[2025-06-22 08:20] LABS: BASO # 0.1 10^3/uL (0.0-0.2); BASO % 0.9 % (0.0-1.0); EOS # 0.1 10^3/uL (0.0-0.5); EOS % 0.5 % (0.0-3.0); LYMPH # 1.3 10^3/uL (1.5-5.0); LYMPH % 11.9 % (24.0-44.0); MONO # 0.7 10^3/uL (0.0-0.8); MONO % 6.6 % (2.0-8.0); NEUTROPHILS # 8.4 10^3/uL (1.5-8.5); NEUTROPHILS % 79.7 % (36.0-66.0); PLATELET COUNT, AUTOMATED 251 10^3/uL (150-450)
[2025-06-22 08:54] LABS: ALT/SGPT 37.0 U/L (7.0-40); AST/SGOT 51.0 U/L (<34); CALCIUM LEVEL 8.4 MG/DL (8.3-10.6); CARBON DIOXIDE LEVEL 23.0 MMOL/L (20-31); CHLORIDE LEVEL 103.0 MMOL/L (98-107); CREATININE FOR GFR 1.25 MG/DL (0.70-1.30); GLOMERULAR FILTRATION RATE 63.1 (>49); MAGNESIUM LEVEL 2.0 MG/DL (1.8-2.4); POTASSIUM SERUM 3.9 MMOL/L (3.5-5.1); SODIUM LEVEL 141.0 MMOL/L (136-145)
[2025-06-22 10:30] VITALS: BP 153/91; TEMP 98.2; O2SAT 97
== END 2025-06-22 10:48 | disposition home or self-care (01) ==
LOC: M ED 07:21
DX: R61 Generalized hyperhidrosis (principal); I44.4 Left anterior fascicular block; I49.9 Cardiac arrhythmia, unspecified; I10 Essential (primary) hypertension; J45.909 Unspecified asthma, uncomplicated; M54.50 Low back pain, unspecified; C61 Malignant neoplasm of prostate; F12.10 Cannabis abuse, uncomplicated; Z79.52 Long term (current) use of systemic steroids; Z79.899 Other long term (current) drug therapy